=== PATIENT | male | born 1975 | race Two or more races ===

== ENCOUNTER 2018-09-25 17:26 | Emergency (ER) | payer BC, MEDICAID ==
[~2018-09-25] VITALS: Ht 180.3 cm; Wt 103.4 kg
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
[2018-09-25] MEDS ORDERED: MAG HYDROX/AL HYDROX/SIMETH 30 ML UDC PO ONE (18:00)
[2018-09-25] MEDS ORDERED: LIDOCAINE VISCOUS 2% UD 15 ML UDC MM ONE (18:00)
[2018-09-25] MEDS ORDERED: MAG HYDROX/AL HYDROX/SIMETH 30 ML UDC ONE (18:08)
[2018-09-25] MEDS ORDERED: LIDOCAINE VISCOUS 2% UD 15 ML UDC ONE (18:08)
--- NOTE | 2018-09-25 19:13 | NUR ---
REPORT GIVEN TO EDE ZAVALA FOR [facility]
[2018-09-25] MEDS ORDERED: DEXAMETHASONE SOD PHOSPHATE 10 MG/ML VIAL ONE (20:44)
[2018-09-25 20:56] VITALS: BP 113/67
--- NOTE | 2018-09-25 20:56 | NUR ---
Patient discharged to home in stable condition. Written and verbal after care instructions given. Patient verbalizes understanding of instruction. Pt ambulatory with a steady gait
[2018-09-25] MEDS ORDERED: DEXAMETHASONE SOD PHOSPHATE 10 MG/ML VIAL IM ONE (21:00)
== END 2018-09-25 20:57 | disposition home or self-care (01) ==
LOC: ER 17:29
DX: T65.891A Toxic effect of other specified substances, accidental (unintentional), initial encounter (principal); Y92.89 Other specified places as the place of occurrence of the external cause
CPT/HCPCS: 71045; 96372; 99283; A4606; J1100